=== PATIENT | male | born 1975 | race Caucasian/White ===

== ENCOUNTER 2020-02-06 13:37 | Emergency (ER) | payer OTHER ==
[~2020-02-06] VITALS: Ht 180.3 cm; Wt 72.6 kg
[~2020-02-06 13:37] MED LIST: NORCO 5-325 TA1 EACH PO
[2020-02-06] MEDS ORDERED: IBUPROFEN600 MG PO (15:38)
== END 2020-02-06 16:16 | disposition home or self-care (01) ==
LOC: ED 13:37
DX: S93.601A Unspecified sprain of right foot, initial encounter (principal); F17.200 Nicotine dependence, unspecified, uncomplicated; Z79.899 Other long term (current) drug therapy; X58.XXXA Exposure to other specified factors, initial encounter; Y93.89 Activity, other specified; Y92.89 Other specified places as the place of occurrence of the external cause; Y99.8 Other external cause status